=== PATIENT | female | born 1965 ===

== ENCOUNTER 2023-11-14 08:35 | Inpatient (IN) | payer MEDICARE, SELFPAY ==
--- NOTE | 2023-10-22 11:09 | CM ---
Addendum entered by Bel Henry 11/03/23 10:13:
Spoke again with patient. She states that her friend, Jamari, will stay with ehr for a month after surgery. She has not yet scheduled outpatient PT and was encouraged to do so maryana. She has obtained a hip kit.
Original Note:
Patient is scheduled for an elective R THR on 11/14/23. Spoke with patient prior to surgery via telephone. Introduced role of Orthopedic Navigator. Patient reports that she lives with her son in a one story home. There are no steps to enter. She
requires assistance with putting on shoes but otherwise functions independently. She uses a rolling walker or cane. She also has a raised toilet seat, shower seat and toilet rails. She has had VN services. PCP is Alec Boone.
Discussed orthopedic program and post surgical plans. Reviewed anticipated length of stay and that goal is for her to return home at discharge. Also reviewed outpatient PT. Patient is in agreement with tentative plan and will go directly to
outpatient PT. She will have support from her family when she goes home.
Patient will complete online education.
Plan: Orthopedic Navigator will remain available to assist with the care of patient and will reassess discharge needs after surgery.
[2023-10-31 13:33] VITALS: BMI 31.2
[2023-10-31 13:44] LABS: Hematocrit 41.4 % (37.0-47.0); Hemoglobin 13.8 g/dL (12.0-16.0); Mean Corp Hgb Conc. 33.3 g/dL (33.0-37.0); Mean Corpuscular Hgb 30.5 pg (27.0-31.0); Mean Corpuscular Volume 91.6 fL (81.0-99.0); Mean Platelet Volume 10.9 fL (7.4-10.4); Platelet Count 245 10^3/uL (130-400); Red Blood Cell Count 4.52 10^6/uL (4.20-5.40); Red Cell Dist. Width 13.6 % (11.5-14.5); White Blood Cell Count 9.3 10^3/uL (4.8-10.8)
[2023-10-31 13:51] VITALS: BMI 31.2
[2023-10-31 14:26] LABS: ALT (SGPT) 21 U/L (0-35); AST (SGOT) 22 U/L (14-36); Albumin 4.1 g/dl (3.5-5.0); Alkaline Phosphatase 86 U/L (38-126); Blood Urea Nitrogen 18 mg/dl (7-17); Calcium 9.7 mg/dl (8.4-10.2); Carbon Dioxide 31 mmol/L (22-30); Chloride 101 mmol/L (98-107); Estimated Creatinine Clearance 117 ml/min; Glucose 74 mg/dl (70-99); Potassium 4.4 mmol/L (3.5-5.1); Sodium 135 mmol/L (135-145); Total Bilirubin 0.6 mg/dl (0.2-1.3); eGFR > 60.00
[2023-10-31 14:56] LABS: Glycohemoglobin (HgbA1c) 5.9 % (4.0-5.6)
[2023-11-14] VITALS (14 sets, daily range): BP systolic 90–137; BP diastolic 18–85; PULSE 69; O2SAT 100; BMI 31.2
[2023-11-14] MEDS: TYLENOL 650 MG PO ×2 (09:44→14:16)
[2023-11-14] MEDS: CELEBREX 200 MG PO (09:44)
[2023-11-14] MEDS: NORMOSOL-R 1000 IV ×2 (09:44→14:18)
--- NOTE | 2023-11-14 10:53 | CM ---
Reviewed chart. Patient admitted as planned for elective R THR. Met with patient at bedside prior to surgery. Patient very anxious, tearful and fearful. She reports having nightmares about surgery and not being able to wake up. Navigator offered
emotional support. Confirmed information previously obtained for assessment. Also discussed discharge plans. The plan is for patient to go to her home at discharge. She will have support from her friend, Jamari and other family members when she
goes home. Jamari will stay with her for a month. She will go to outpatient PT at [facility]. She has an appointment for Friday, November 16.
Patient has a rolling walker, cane, raised toilet seat, shower seat and a toilet rails at home.
Patient will use [facility] in [place] for discharge prescriptions.
--- NOTE | 2023-11-14 12:52 | W.PN.UPDATE ---
Update Note
Progress Note Update
R hip OA s/p R SAMUEL w/ Dr Laureano 11/14/23
DVT prophylaxis - ASA per surgeon, b/l venous foot pumps
HTN - + parameters - monitor BP
Nonischemic cardiomyopathy
Congestive heart failure, preserved ejection fraction
- Reduce hourly IVF rate to prevent fluid overload
Multilevel degenerative disc disease with radiculopathy - consider Lyrica or Gabapentin
Hyperlipidemia
Left ventricle apical thrombus on echo 08/2019, treated with Coumadin
Anxiety
PTSD
Prediabetes, A1c 5.9
Obesity, BMI 31.2
History of tobacco abuse
Cannabis dependence
--- NOTE | 2023-11-14 12:59 | OR.RPT ---
Operative Report
Operative Report
Orthopaedic Surgery Operative Note
DATE OF OPERATION: 11/14/2023
PREOPERATIVE DIAGNOSES: Osteoarthritis, right hip
POSTOPERATIVE DIAGNOSES: Same
OPERATION PERFORMED: Right total hip arthroplasty.
SURGEON: Derick Laureano MD
ARTIFICIAL BREEDING RANCH SUPERVISOR: Blair Helms PA-C who assisted with patient positioning and retraction
ANESTHESIA: General
COMPLICATIONS: None.
ESTIMATED BLOOD LOSS: 50 mL.
DRAINS: None
SPECIMEN: None
FINDINGS: Advanced articular cartilage wear on the femoral head and acetabulum.
IMPLANTS:
Laine Trilogy Acetabular Shell, cluster hole, size 52
Laine Trilogy Highly Crosslinked PE Liner, neutral
Laine M/L Taper femoral stem, size 7.5 with standard neck length and standard offset
Biolox Ceramic Head, size 36mm +0
INDICATIONS: The patient presented to my office with debilitating right hip pain due to osteoarthritis. We reviewed the natural history of this problem, as well as the risks, benefits, and alternatives of various treatment options. The patient
exhausted all nonoperative treatment options and wished to proceed with hip replacement surgery. The patient understood the risks which included, but were not limited to, bleeding, infection, failure to relieve pain, more pain than preop, damage to
blood vessels and nerves, need for reoperation, mechanical failure of the implants, wound healing problems, stiffness, instability, blood clot, pulmonary embolism, myocardial infarction, pneumonia, arrhythmia, CVA, and . The patient accepted
these risks and wished to proceed. All questions were answered, and informed consent was obtained.
PROCEDURE IN DETAIL: The patient was identified in the preoperative holding area. The right hip was identified as the operative site. The patient was taken in the operating room and transferred to the operative table. General anesthesia was
performed. IV antibiotics and tranexamic acid were administered. The patient was placed in the lateral position with Stulberg hip positioners. Axillary roll was placed. The down leg was well padded. All bony prominences were well padded. The
operative limb was prepped and draped in the usual sterile fashion.
Time out was performed. A posterolateral approach to the hip was used. The skin incision was centered over the greater trochanter. This was taken down sharply through subcutaneous tissues. Meticulous hemostasis was achieved throughout the case with
electrocautery. We split the fascia aparna in line with skin incision. I split the gluteus kaleb bluntly. We cauterized all crossing vessels as we split it. I palpated the sciatic nerve and made sure it was well posterior in the operative field. It
was protected throughout the case.
I performed a partial bursectomy to identify the short external rotators. The gluteus medius and minimus were identified and retracted anteriorly. I incised the piriformis tendon and conjoint tendon at their insertions. These were tagged for later
repair. I then performed a trapezoidal capsulotomy. The edges were tagged for later repair. I referenced the cut edge of the capsular flap to 2 fixed points on the greater trochanter for assistance with recreation of limb length and offset. I then
dislocated the hip posteriorly. I performed a femoral neck osteotomy approximately 5 mm above the lesser trochanter, as per preoperative templating. The femoral head measured 47 mm in outer diameter. The distance between neck cut and the center of
femoral head was 35mm. I placed a curve hohmann retractor over the anterior lip of the acetabulum between the labrum and the anterior hip capsule. A second retractor was placed inferiorly just distal to the transverse acetabular ligament.
Circumferential view of the acetabulum was achieved. I incised the labrum and pulvinar with electrocautery. I started with a 47mm reamer and reamed down to the medial wall. I then sequentially reamed up to a 51mm reamer. This gave a nice bed of
bleeding bone with excellent column support anteriorly and posteriorly. I impacted the acetabular shell in approximately 40 degrees of abduction and 20 degrees of anteversion. I matched the anteversion of the transverse acetabular ligament. I also
made sure that the anterior rim of the socket was not proud of the anterior wall to minimize the chance of iliopsoas tendinitis. I confirmed the cup was well-seated. I then impacted a neutral liner and confirmed it was well seated with the locking
mechanism.
On the femoral side, I use a box osteotome to open the proximal starting point. I found the canal with a Charnley awl and a lateralizing reamer. I then used the Laine M/L taper broaches sequentially to prepare the femoral canal. The size 7.5 came
to a stop at the desired level and had excellent axial and rotational stability. We trialed with a trial ball head. The hip was taken through a complete range of motion. It was noted to be stable in extension without impingement. It was stable in
the position of sleep and in flexion with internal rotation. The limb length and offset were checked compared to the capsular flap and was appropriate. The measured length between the neck cut and center of the trial femoral head was 37.5mm.
I removed the trials. I impacted the femoral implant to match the ouzinkie version. It had excellent axial and rotational stability. Trial ball head was placed, and I reduced the hip and took the hip through range of motion. There was no impingement
in external rotation and extension. Position of sleep was stable. At 90 degrees of flexion and slight adduction, the hip could be internally rotated to 90 degrees with no subluxation. I palpated the sciatic nerve, which was tension free and
unharmed. Based on our capsular flap measurement, we had restored the offset and leg length. The trial ball head was removed, and the final ball head was impacted onto a clean and dry Islas taper. The hip was reduced.
A dilute betadine soak was performed for approximately 3 minutes, and then the hip was copiously irrigated. I repaired the capsule, piraformis, and conjoint tendon with #2 Ethibond to drill holes in the greater trochanter. Local anesthetic was
injected. The fascia aparna was closed with #1 PDS in running fashion. The subcutaneous tissues were closed with 2-0 PDS in running fashion. The skin was reapproximated with 3-0 Monocryl subcuticular suture. I placed a Prineo dressing followed by a
Mepilex Ag dressing. The patient awoke from anesthesia without difficulty. Sponge and instrument counts were correct x2 at the end of the case.
I was present and participated in the entire procedure. The patient was sent to the recovery room in stable condition.
Elver Laureano MD
[2023-11-14] MEDS: DILAUDID 0.5 MG IV ×2 (13:21→20:09)
[2023-11-14] MEDS: DEMEROL 12.5 MG IV ×2 (13:36→13:50)
[2023-11-14] MEDS: ROXICODONE 5 MG PO (14:06)
[2023-11-14] MEDS: NEURONTIN 300 MG PO (14:25)
[2023-11-14] MEDS: TORADOL 30 MG IV (14:33)
--- NOTE | 2023-11-14 15:21 | SUR.PHASEI ---
patient with known PTSD, anxiety agitation - to pacu post op total hip with general anesthesia, arrived agitated screaming, c/o severe pain, tense hanging on to siderails hyperventilating. encourage relaxation and allowed to verbalize and
medicated for pain - and shivers. multimodal. vss, Dr Soliz updated and Donya RICO updated, additional meds of neurontin and Toradol added and given. more relaxed. vss. still c/o pain but vitals are good and able to relax. report to 2 south
and transported by bed, anxious to order food. Patient states she has own meds with her belongings that are with family. encouraged to send meds home with family
--- NOTE | 2023-11-14 15:27 | PTCARENOTE ---
1500: Patient arrived to 2S. Full head to toe assessment completed. B/L neurovascular checks completed. IVF running per order. Bed in lowest position and call gordon within reach. Family at bedside.
[2023-11-14] MEDS: CLARITIN PO (15:58)
[2023-11-14] MEDS: ANCEF 5 IV (16:02)
[2023-11-14] MEDS: ENTRESTO 24 MG/26 MG PO ×2 (16:27→20:13)
[2023-11-14] MEDS: ASPIRIN 325 MG PO (17:22)
[2023-11-14] MEDS: ROXICODONE 10 MG PO ×2 (18:01→22:31)
[2023-11-14] MEDS: SENOKOT 17.1999999999999993 MG PO (20:14)
[2023-11-14] MEDS: COLACE 100 MG PO (20:14)
[2023-11-14] MEDS: BACTROBAN 2% OINTMENT 1 APPLIC NASAL (20:14)
[2023-11-14] MEDS: DECADRON 4 MG PO (20:15)
[2023-11-14] MEDS: COREG 6.25 MG PO (22:33)
[2023-11-14] MEDS: NEURONTIN 200 MG PO (22:34)
[2023-11-14] MEDS: XANAX 0.5 MG PO (22:34)
[2023-11-14] MEDS: PEPCID 20 MG PO (22:35)
[2023-11-14] MEDS: CRESTOR 5 MG PO (22:35)
[2023-11-14] MEDS: TYLENOL PO (22:36)
[2023-11-15] MEDS: TYLENOL PO ×2 (01:16→04:57)
[2023-11-15] MEDS: DILAUDID 0.5 MG IV ×2 (01:17→05:31)
[2023-11-15] MEDS: ANCEF 5 IV (01:17)
[2023-11-15] MEDS: ROXICODONE 10 MG PO (02:47)
[2023-11-15] MEDS: DILAUDID 4 MG PO ×3 (08:06→20:12)
[2023-11-15] MEDS: CLARITIN 10 MG PO (08:07)
[2023-11-15] MEDS: CELEBREX 200 MG PO (08:07)
[2023-11-15] MEDS: NEURONTIN 200 MG PO ×3 (08:09→21:45)
[2023-11-15] MEDS: ASPIRIN 325 MG PO (08:09)
[2023-11-15] MEDS: TYLENOL 650 MG PO ×5 (08:09→23:46)
[2023-11-15] MEDS: ENTRESTO 24 MG/26 MG PO (08:09)
[2023-11-15] MEDS: COLACE PO (08:10)
[2023-11-15] MEDS: SENOKOT PO (08:10)
[2023-11-15] MEDS: DECADRON 4 MG PO ×2 (08:10→20:12)
[2023-11-15] MEDS: COREG 6.25 MG PO ×2 (08:10→20:12)
[2023-11-15] MEDS: BACTROBAN 2% OINTMENT 1 APPLIC NASAL ×2 (08:11→20:12)
[2023-11-15 08:16] VITALS: BP 138/83
[2023-11-15 10:34] VITALS: BP 128/76
[2023-11-15 11:09] VITALS: BP 120/81
[2023-11-15] MEDS: XANAX 0.5 MG PO ×2 (11:27→23:46)
--- NOTE | 2023-11-15 12:48 | W.PN.ORTHO ---
Today's Communication / Plan
-
58-year-old female POD 1 R SAMUEL performed under the direction of Dr. Laureano 11/14/2023.
- WBAT RLE with use of walker for assistance.
- PT/OT.
- THP's.
- ASA 325mg QD x 4 weeks for DVT prophylaxis.
- Patient having difficulty controlling post-operative pain. Pre-operatively, she was taking Tramadol 50 mg twice daily. This morning, patient reports that the Oxycodone 10mg was not alleviating her pain at all. Adjusted medication to Dilaudid 4mg
PO Q6 hours PRN for severe pain, which provided better relief. Patient reports discomfort localized to right hip and denies any sciatica type pains at this time. Patient also receiving Tylenol 650mg q6WA. Celebrex was discontinued. Ordered Toradol
30mg IV STAT followed by 15mg IV ONCE 6 hours later if needed for 1 dose.
- Patient does not feel ready for discharge today. Patient will remain admitted, with hopeful discharge tomorrow. Case discussed with Dr. Laureano.
- Post-operative medications will be sent to the patient's pharmacy on file through [facility].
- Orthopedic surgery will continue to follow along.
Assessment
.
Distal Motor Intact: Yes
Dressing:
Clean, dry and intact.
Assessment:
POD #[address] Laureano 11/14/2023
Plan
.
Surgery / Date: R SAMUEL / 11/14/2023
DVT Prophylaxis: Aspirin
Activity:
Out of bed.
PT/OT
Discharge Plan: Home
Subjective
.
.:
Patient laying in bed. She does report quite a bit of pain to the right hip. She does not feel as though she is ready for discharge today.
Vital Signs and Labs
.
Vital Signs and Labs:
Lab Results
11/15/23 07:30
10/31/23 13:29
Temp Pulse Resp BP Pulse Ox
98.7 F 69 16 120/81 100
11/15/23 11:09 11/15/23 11:09 11/15/23 11:09 11/15/23 11:09 11/15/23 11:09
Physical Exam
-
Physical examination of the right hip reveals Mepilex dressing to be clean, dry, and intact. No surrounding erythema, significant warmth, or ecchymosis. No obvious deformity. Able to plantarflex and dorsiflex right ankle. Calf is soft and
nontender to palpation. Patient is neurovascularly intact distally.
[2023-11-15 15:31] VITALS: BP 123/65
[2023-11-15] MEDS: TORADOL 30 MG IV (18:17)
[2023-11-15] MEDS: COLACE 100 MG PO (20:12)
[2023-11-15] MEDS: ENTRESTO 24 MG/26 MG 1 TAB PO (20:12)
[2023-11-15] MEDS: SENOKOT 17.1999999999999993 MG PO (20:12)
[2023-11-15] MEDS: PEPCID 20 MG PO (21:45)
[2023-11-15] MEDS: CRESTOR 5 MG PO (21:45)
[2023-11-15 23:31] VITALS: BP 118/63
[2023-11-16] MEDS: DILAUDID 4 MG PO (04:27)
[2023-11-16] MEDS: TYLENOL 650 MG PO ×2 (04:31→08:06)
[2023-11-16 07:20] VITALS: BP 136/83
[2023-11-16] MEDS: COREG 6.25 MG PO (08:05)
[2023-11-16] MEDS: CLARITIN 10 MG PO (08:06)
[2023-11-16] MEDS: COLACE 100 MG PO (08:06)
[2023-11-16] MEDS: ASPIRIN 325 MG PO (08:06)
[2023-11-16] MEDS: NEURONTIN 200 MG PO (08:06)
[2023-11-16] MEDS: DECADRON 4 MG PO (08:06)
[2023-11-16] MEDS: ENTRESTO 24 MG/26 MG 1 TAB PO (08:06)
[2023-11-16] MEDS: SENOKOT 17.1999999999999993 MG PO (08:06)
--- NOTE | 2023-11-16 08:06 | W.PN.ORTHO ---
Today's Communication / Plan
-
58-year-old female POD 2 R SAMUEL performed under the direction of Dr. Laureano 11/14/2023.
- WBAT RLE with use of walker for assistance.
- PT/OT.
- THP's.
- ASA 325mg QD x 4 weeks for DVT prophylaxis.
- Patient reports that her pain has improved after administration of IV Toradol and is now more comfortable. She is excited for discharge to home. She worked with PT/OT this morning and did well. Patient is stable for discharge. She is scheduled to
begin outpatient PT tomorrow at [facility].
- Post-operative medications were sent to the patient's pharmacy on file through [facility].
- Mepilex dressing to remain intact.
- Patient will follow-up in the office 2 weeks postop for her first postoperative visit.
Assessment
.
Distal Motor Intact: Yes
Dressing:
Clean, dry and intact.
Assessment:
POD 2 R SAMUEL 11/14/2023 with Georgi
Plan
.
Surgery / Date: R SAMUEL / 11/14/2023
DVT Prophylaxis: Aspirin
Activity:
Out of bed.
PT/OT
Discharge Plan: Home
Subjective
.
.:
Patient sitting on the side of bed eating breakfast. She reports that she was finally able to sleep last night. She was able to ambulate to the bathroom 2 times without assistance. Pain has diminished after IV Toradol. Patient excited to go
home.
Vital Signs and Labs
.
Vital Signs and Labs:
Lab Results
11/15/23 07:30
10/31/23 13:29
Temp Pulse Resp BP Pulse Ox
98.2 F 69 18 118/63 97
11/15/23 23:31 11/15/23 23:31 11/15/23 23:31 11/15/23 23:31 11/15/23 23:31
Non-invasive Hgb result: 12.3
Physical Exam
-
Physical examination of the right hip reveals Mepilex dressing to be clean, dry, and intact. No surrounding erythema, significant warmth, or ecchymosis. No obvious deformity. Able to plantarflex and dorsiflex right ankle. Calf is soft and
nontender to palpation. Patient is neurovascularly intact distally.
[2023-11-16] MEDS: ROXICODONE 5 MG PO (08:20)
[2023-11-16] MEDS: XANAX 0.5 MG PO (08:20)
--- NOTE | 2023-11-16 09:07 | PTCARENOTE ---
pt aaox3. states 7/10 pain in right hip. and that she feels anxious. medication given as ordered. pt walking in room with walker without assistance.
[2023-11-16 10:45] VITALS: BP 127/72
--- NOTE | 2023-11-16 11:04 | W.DS.TRANS ---
DC Summary - Plumber Gasfitter
-
Discharge Instructions:
Sleep Apnea Risk Low
Discharge Diagnosis/Procedures R hip OA s/p R SAMUEL w/ Dr Laureano 11/14/23
Diet Regular
Activity As tolerated,With Walker
Driving Restrictions Not until seen by your Dr
Bathing Restrictions OK to Shower
Other Services PT
Wound Care Leave dressing on until seen by your surgeon's
office in 2 weeks.
Specialty Instructions Weigh Daily
Instructions:
Stand-Alone Forms: Total Hip/Knee Replacement D/C
Changes to Home Medications: No
Discharge Medications:
DC Medications w/original date entered in [employer]
carvedilol 6.25 mg tablet 6.25 mg PO BID Heart Disease/Condition 10/27/23
loratadine 10 mg tablet (Claritin) 10 mg PO DAILY Allergies 10/27/23
rosuvastatin 5 mg tablet 5 mg PO HS High Cholesterol 10/27/23
sacubitril 24 mg-valsartan 26 mg tablet (Entresto) 1 tab PO BID Heart Disease/Condition 10/27/23
mupirocin 2 % topical ointment 1 applic intranasal BID #1 tube 10/31/23
acetaminophen 325 mg tablet 650 mg (2 x 325 mg) PO Q4HWA Fever/pain #30 tabs 11/16/23
aspirin 325 mg tablet 325 mg PO DAILY Blood clot prevention/tx 4 weeks #28 tabs 11/16/23
celecoxib 100 mg capsule (Celebrex) 100 mg PO BID Anti-inflammatory 15 days #30 caps 11/16/23
dexamethasone 4 mg tablet 4 mg PO BID Anti-inflammatory #3 tabs 11/16/23
docusate sodium 100 mg capsule 100 mg PO BID Constipation #30 caps 11/16/23
hydromorphone 4 mg tablet 4 mg PO Q6HPRN PRN Severe Pain #30 tabs 11/16/23
ondansetron HCl 4 mg tablet 4 mg PO Q6H PRN nausea and vomiting #30 tabs 11/16/23
tramadol 50 mg tablet 50 mg PO BID PRN Mild Pain #0 tabs 11/16/23
Home Medication Changes
Pending Results: No
Total time spent discharging patient (in min): 45 Minutes
== END 2023-11-16 11:26 | disposition home or self-care (01) | DRG 470 ==
LOC: 2 SOUTH 08:35
PROVIDERS: ADMITTING PHYSICIAN Orthopaedic Surgery; FAMILY PHYSICIAN Family Medicine
PROC: 0SR903A Replacement of Right Hip Joint with Ceramic Synthetic Substitute, Uncemented, Open Approach (ICD-10-PCS; 2023-11-14)
DX: M16.11 Unilateral primary osteoarthritis, right hip (principal); E66.9 Obesity, unspecified; Z68.31 Body mass index [BMI] 31.0-31.9, adult
CPT/HCPCS: 36415; 73502; 80053; 83036; 85027; 87070; 97116; 97162; 97166; 97530; 97535; C1776

== ENCOUNTER 2023-11-21 08:54 | Emergency (ER) | payer MEDICARE, SELFPAY ==
[2023-11-21 09:01] VITALS: BP 140/88
--- NOTE | 2023-11-21 09:41 | ED.GENMED ---
History of Present Illness
General
Chief Complaint: Abdominal Pain
Source: patient
Exam Limitations: none
Time Seen by Provider: 11/21/23 09:28
Travel History
Have you had any contact with someone who has COVID-19?: No
Do you have any symptoms of coronavirus? Fever > 100 degrees, chills, cough, shortness of breath, sore throat, loss of taste or smell, muscle aches, or headache?: No
History of Present Illness
History of Present Illness:
58-year-old female presents with worsening mid abdominal and right upper quadrant abdominal pain with distention and nausea. She had hip replacement surgery 1 week ago and was discharged 4 days ago. She had a bowel movement in the hospital and at
home after discharge but since then, 3 days ago she has not had a bowel movement. The pain is constant in nature mainly to the epigastric region. Anything she eats or drinks exacerbates the pain. There has been no vomiting but she is extremely
nauseous. The pain does not radiate to the back. There is no chest pain without pleuritic. She has not been taking any narcotics since leaving the hospital.
Phy Exam
Physical Exam
Physical Exam:
General: Uncomfortable, tearful appearing female no acute respiratory distress
HEENT: Normocephalic mucosa dry neck is supple heart: Regular rate and rhythm no murmurs
Lungs: Clear no wheeze or rales
Abdomen: Slightly distended but soft tender to the right upper quadrant epigastric region. Mild guarding no rebound tenderness normal bowel sounds
Extremities: No cyanosis
Course
Orders/Labs/Results
Orders:
Orders
11/21/23 09:39
0.9% Sodium Chloride 1000 ml [Nss] 1,000 ml IV BOLUS
Famotidine [Pepcid] 20 mg IV NOW STA
Ondansetron Injectable [Zofran] 4 mg IV NOW STA
11/21/23 09:40
CT Abd/pelvis W Iv Cont Urgent
Comment:
Reason For Exam: abdominal pain, distention, nausea
11/21/23 09:59
Complete Blood Count/With Diff Urgent
Comprehensive Metabolic Panel Urgent
Lipase Urgent
11/21/23 12:15
Mag Hydrox/Al Hydrox/Simeth [Maalox] 30 ml Phenobarb/Hyoscy/Atropine/Scop [] 10 ml Viscous Lidocaine 2% [Xylocaine Viscous Cup] 10 ml PO NOW
Pantoprazole [Protonix IV] 40 mg IV NOW STA
11/21/23 12:33
Phenobarb/Hyoscy/Atropine/Scop [] 10 ml .ROUTE .STK-MED ONE
11/21/23 12:34
Mag Hydrox/Al Hydrox/Simeth [Maalox] 30 ml .ROUTE .STK-MED ONE
Viscous Lidocaine 2% [Xylocaine Viscous Cup] 15 ml .ROUTE .STK-MED ONE
Abnormal Lab Results
11/21/23
09:59
WBC 15.0 H 10^3/uL
(4.8-10.8)
RBC 4.15 L 10^6/uL
(4.20-5.40)
Abs Immat Gran (auto) 0.2 H 10^3/uL
(0-0.05)
Absolute Neuts (auto) 11.4 H 10^3/uL
(1.4-6.5)
Absolute Monos (auto) 1.3 H 10^3/uL
(0.1-0.6)
Immature Gran % 1.2 H %
(0-0.5)
Neutrophils % 75.8 H %
(42.2-75.2)
Lymphocytes % 13.7 L %
(20.5-51.1)
Creatinine 0.5 L mg/dL
(0.6-1.0)
Glucose 116 H mg/dl
(70-99)
Total Bilirubin 1.5 H mg/dl
(0.2-1.3)
11/21/23 09:59
11/21/23 09:59
Vital Signs
Initial and Last Documented VS:
Initial Vital Signs
Temp Pulse Resp BP Pulse Ox
98.4 F 82 18 140/88 100
11/21/23 09:01 11/21/23 09:01 11/21/23 09:01 11/21/23 09:01 11/21/23 09:01
Last Documented Vital Signs
Temp Pulse Resp BP Pulse Ox
98.4 F 67 16 149/72 100
11/21/23 09:01 11/21/23 09:50 11/21/23 09:50 11/21/23 09:50 11/21/23 09:50
MDM/Problems Addressed
Differential Diagnosis Includes:
Abdominal pain. Consider constipation versus obstruction pancreatitis versus ulcer versus gallstones.
Will check labs. Zofran fluids Pepcid ordered
CT pending
*Critical Care Note
Total Time (30-74mins, 75-104mins- exclusive of procedures): Not Applicable
Update Note
Update Note:
CT abdomen demonstrates duodenitis and moderate stool burden. Discussed findings with GI. Patient given Pepcid, Zofran GI cocktail and Protonix here. She was eventually reevaluated and states she feels much better. Her pain is gone. She is not
tolerating oral fluids and had a muffin. Will send patient home with instruction to take MiraLAX and Carafate. Stable for discharge
ED Attending Note
-
Portions of this chart may have been created with voice recognition software.� Occasional wrong word or��sound alike� substitutions may have occurred due to the inherent limitations of voice recognition software.
Discharge Plan
Departure
Patient Disposition: Home (Routine Discharge)
Date of Disposition: 11/21/23
Time of Disposition: 14:54
Patient with high blood pressure during this ER visit?: No
Discharge Problem:
Abdominal pain
Instructions: Abdominal Pain
Prescriptions:
New
sucralfate [Carafate] 100 mg/mL suspension
10 ml PO BID Qty: 300 0RF
No Action
carvedilol 6.25 mg Tablet
6.25 mg PO BID
loratadine [Claritin] 10 mg Tablet
10 mg PO DAILY
rosuvastatin 5 mg Tablet
5 mg PO HS
Entresto 24-26 mg Tablet
1 tab PO BID
mupirocin 2 % ointment
1 applic intranasal BID Qty: 1 0RF
Patient Comments:
Last dose this am, has been using BID for 3 days
aspirin 325 mg Tablet
325 mg PO DAILY 28 Days Qty: 28 0RF
Rx Instructions:
Take daily x 4 weeks for blood clot prevention.
dexamethasone 4 mg Tablet
4 mg PO BID Qty: 3 0RF
Rx Instructions:
Restart night of discharge and take twice a day until finished. Take with food.
docusate sodium 100 mg Capsule
100 mg PO BID Qty: 30 0RF
hydromorphone 4 mg Tablet
4 mg PO Q6HPRN PRN (Reason: Severe Pain) Qty: 30 0RF
acetaminophen 325 mg Tablet
650 mg PO Q4HWA Qty: 30 0RF
Rx Instructions:
Do not exceed greater than 4000 mg daily.
ondansetron HCl 4 mg tablet
4 mg PO Q6H PRN (Reason: nausea and vomiting) Qty: 30 0RF
celecoxib [Celebrex] 100 mg capsule
100 mg PO BID 15 Days Qty: 30 0RF
tramadol 50 mg Tablet
50 mg PO BID PRN (Reason: Mild Pain) Qty: 0
Rx Instructions:
Do NOT take with Dilaudid or while on Dilaudid. May take in place of Dilaudid for mild pain.
Referrals:
PRIVATE,PHYSICIAN [Family Provider] -
Activity Restrictions/Additional Instructions:
Use MiraLAX twice a day for constipation. Take Carafate as needed for pain. Return here for worsening symptoms otherwise follow-up with your family doctor
Interventions
Interventions:
*Risk Screen - Suicide Last Done: 11/21/23 10:00
*General Assessment Last Done: 11/21/23 09:01
*Neglect/Abuse Screening Last Done: 11/21/23 10:00
ED- Fall Risk Assessment Last Done: 11/21/23 10:00
*ED COVID-19 Vaccine History Last Done: 11/21/23 09:01
HI-Futnid-Lfxscptajo Assessment Last Done: 11/21/23 10:00
Discharge Date and Time
Print Language: LATVIAN
[2023-11-21 09:47] VITALS: BMI 30.8
[2023-11-21 09:50] VITALS: BP 149/72
[2023-11-21] MEDS: NSS 1000 IV (09:58)
[2023-11-21] MEDS: PEPCID 20 MG IV (09:59)
[2023-11-21] MEDS: ZOFRAN 4 MG IV (09:59)
[2023-11-21 10:25] LABS: ALT (SGPT) 22 U/L (0-35); AST (SGOT) 23 U/L (14-36); Albumin 4.1 g/dl (3.5-5.0); Alkaline Phosphatase 64 U/L (38-126); Blood Urea Nitrogen 16 mg/dl (7-17); Calcium 9.6 mg/dl (8.4-10.2); Carbon Dioxide 28 mmol/L (22-30); Chloride 101 mmol/L (98-107); Estimated Creatinine Clearance 116 ml/min; Glucose 116 mg/dl (70-99); Lipase 34 U/L (23-300); Sodium 137 mmol/L (135-145); Total Bilirubin 1.5 mg/dl (0.2-1.3); eGFR > 60.00
[2023-11-21 10:26] LABS: % Basophils 0.3 % (0-2); % Eosinophils 0.6 % (0-6); % Immature Granulocytes 1.2 % (0-0.5); % Lymphocytes 13.7 % (20.5-51.1); % Monocytes 8.4 % (1.7-9.3); % Neutrophils 75.8 % (42.2-75.2); Absolute Eosinophils 0.1 10^3/uL (0-0.7); Absolute Immature Granulocytes 0.2 10^3/uL (0-0.05); Absolute Lymphocytes 2.1 10^3/uL (1.2-3.4); Absolute Monocytes 1.3 10^3/uL (0.1-0.6); Absolute Neutrophils 11.4 10^3/uL (1.4-6.5); Hemoglobin 12.7 g/dL (12.0-16.0); Mean Corp Hgb Conc. 34.3 g/dL (33.0-37.0); Mean Corpuscular Hgb 30.6 pg (27.0-31.0); Mean Corpuscular Volume 89.2 fL (81.0-99.0); Mean Platelet Volume 10.1 fL (7.4-10.4); Nucleated Red Blood Cells % 0 %; Platelet Count 347 10^3/uL (130-400); Red Blood Cell Count 4.15 10^6/uL (4.20-5.40); Red Cell Dist. Width 13.4 % (11.5-14.5)
[2023-11-21] MEDS: PROTONIX IV 40 MG IV (12:35)
[2023-11-21] MEDS: MAALOX 50 PO (12:35)
== END 2023-11-21 15:01 | disposition home or self-care (01) ==
LOC: EMR 08:54
PROVIDERS: Physician Assistant; EMERGENCY PHYSICIAN Emergency Medicine
DX: R10.11 Right upper quadrant pain (principal); R10.13 Epigastric pain
CPT/HCPCS: 99285; 96374; 96375; 96361; 74177; 80053; 83690; 85025; Q9967